=== PATIENT | male | born 1955 | race Caucasian/White ===

== ENCOUNTER → 2016-12-13 | Outpatient (CLI) | payer OTHER ==
--- NOTE | 2016-12-14 06:32 | REP ---
Clinical: Lung screening. History smoking. Comparison: None Technique: Axial low-dose noncontrast images from the thoracic inlet to the upper abdomen using lung screening technique. Findings: The lung torres are well-aerated. There is a 10 mm soft tissue nodule in the right upper lobe (image 28) along with a 4 mm soft tissue nodule at the base of the right middle lobe (image 69). No consolidation, pleural effusion/reaction or pneumothorax. Tracheobronchial tree is patent. Mediastinum is grossly unremarkable. Impression: Lung-RADS category IV-A. Recommended management includes 3-month low-dose CT follow-up and/or PET-CT for the 10 mm nodule. Signed by Waqas Bourgeois MD 12/14/2016 06:24 A
== END ==
LOC: M RAD 12:47
PROVIDERS: ATTEND Internal Medicine
DX: Z87.891 Personal history of nicotine dependence (principal)

== ENCOUNTER → 2017-07-11 | Outpatient (CLI) | payer OTHER | LOC: M RAD 08:59 | DX: R91.1 Solitary pulmonary nodule (principal) ==

== ENCOUNTER 2018-04-26 10:57 | Emergency (ER) | payer OTHER ==
[~2018-04-26] VITALS: Ht 175.3 cm; Wt 88.6 kg
[2018-04-26] MEDS ORDERED: CARV25TA (11:14)
[2018-04-26] MEDS ORDERED: VANI1CRE5 (11:14)
[2018-04-26] MEDS ORDERED: SIMV20TA2 (11:14)
--- NOTE | 2018-04-26 11:38 | REP ---
Chest one-view HISTORY: Cough Comparison: 07/05/2012 The lungs are clear. The heart is normal in size. The pulmonary vasculature is normal in appearance. Impression: No acute disease. Electronically Signed by Angelito Marrero MD 04/26/2018 11:29 A
[2018-04-26 11:52] LABS: BASO % 0.2 % (0.0-1.0); EOS % 0.2 % (0.0-3.0); HEMATOCRIT 39.5 % (42.0-52.0); HEMOGLOBIN 13.1 g/dl (13.5-17.5); LYMPH # 0.6 10^3/uL (1.5-4.5); LYMPH % 9.7 % (24.0-44.0); MEAN CORPUSCULAR HGB CONC 33.2 g/dl (32.0-36.5); MEAN CORPUSCULAR VOLUME 93.4 fl (80.0-96.0); MONO # 0.5 10^3/uL (0.0-0.8); MONO % 7.3 % (0.0-5.0); NEUTROPHILS # 5.3 10^3/uL (1.8-7.7); NEUTROPHILS % 82.3 % (36.0-66.0); PLATELET COUNT, AUTOMATED 174 10^3/uL (150-450); RED BLOOD COUNT 4.23 10^6/uL (4.30-6.10); WHITE BLOOD COUNT 6.4 10^3/uL (4.0-10.0)
[2018-04-26] MEDS ORDERED: ALBUTEROL SULFATE 2.5 MG/0.5 ML INH NEB SOLN NEB ONE ×2 (12:15→13:30)
[2018-04-26 12:27] LABS: ALBUMIN 3.6 GM/DL (3.2-5.2); ALT/SGPT 32 U/L (12-78); BILIRUBIN,DIRECT 0.2 MG/DL (0.0-0.2); BILIRUBIN,TOTAL 0.8 MG/DL (0.2-1.0); BLOOD UREA NITROGEN 16 MG/DL (7-18); CALCIUM LEVEL 8.3 MG/DL (8.8-10.2); CARBON DIOXIDE LEVEL 27 MEQ/L (21-32); CHLORIDE LEVEL 102 MEQ/L (98-107); CK-MB VALUE MASS < 1.0 NG/ML (<3.6); CPK CREATINE PHOSPHOKINASE 114 U/L (39-308); CREATININE FOR GFR 0.98 MG/DL (0.70-1.30); GLOMERULAR FILTRATION RATE > 60.0 (>49); GLUCOSE, FASTING 116 MG/DL (70-100); MB/CK RELATIVE INDEX 0.88 (< OR =4); NT-PRO BNP 482 PG/ML (<125); POTASSIUM SERUM 4.1 MEQ/L (3.5-5.1); SODIUM LEVEL 136 MEQ/L (136-145); TOTAL PROTEIN 6.5 GM/DL (6.4-8.2); TROPONIN I < 0.02 NG/ML (< 0.10)
[2018-04-26] MEDS ORDERED: COMP1MIS3 XX (14:05)
[2018-04-26] MEDS ORDERED: PRED20TA PO (14:07)
[2018-04-26] MEDS ORDERED: ALBU83IN NEB (14:07)
[2018-04-26] MEDS ORDERED: predniSONE 20 MG TAB PO ONE (14:15)
[2018-04-26 14:19] VITALS: BP 129/72
--- NOTE | 2018-04-26 21:11 | ECGEPIP ---
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
== END 2018-04-26 14:43 | disposition home or self-care (01) ==
LOC: M ED 10:57
DX: R05 Cough (principal); I10 Essential (primary) hypertension; E78.5 Hyperlipidemia, unspecified; Z87.891 Personal history of nicotine dependence

== ENCOUNTER → 2018-07-17 | Outpatient (CLI) | payer OTHER ==
[~2018-07-17] MED LIST: ALBU83IN NEB; CARV25TA; COMP1MIS3 XX; PRED20TA PO; SIMV20TA2; VANI1CRE5
--- NOTE | 2018-07-18 06:02 | REP ---
Clinical: Follow up abnormal findings. Technique: Axial noncontrast images from the thoracic inlet to the upper abdomen with coronal and sagittal re-formations. Comparison: 07/11/2017, 12/13/2016. Findings: 10 mm noncalcified nodule in the right upper lobe (image 29) and 4 mm noncalcified nodule in the basilar right middle lobe (image 71) are stable. Remainder of lung torres are well-aerated and clear. No further consolidation, nodule or mass lesion appreciated. No effusion. No pneumothorax. Tracheobronchial tree is patent. No obvious adenopathy. Mediastinum demonstrates normal thoracic aorta, pulmonary vasculature and heart/pericardium. Osseous structures are intact. Limited upper abdomen demonstrates normal bilateral adrenal glands. Impression: 1. Stable 4 mm and 10 mm noncalcified nodules. 2. No new acute mediastinal or pleuroparenchymal process. Electronically Signed by Waqas Bourgeois MD 07/18/2018 05:54 A
== END ==
LOC: M RAD 15:26
PROVIDERS: ATTEND Internal Medicine Pulmonary Disease
DX: R91.8 Other nonspecific abnormal finding of lung field (principal)

== ENCOUNTER → 2019-08-24 | Outpatient (CLI) | payer MEDICARE, OTHER ==
[~2019-08-24] MED LIST changes: -CARV25TA; +CARV25TA PO; +CHLO125TA PO; +D31000TA PO; +LISI-538 PO; -SIMV20TA2; +SIMV20TA22 PO; +TRIA25CR TOP
--- NOTE | 2019-08-25 08:14 | REP ---
REASON: Followup pulmonary nodule. History of tobacco abuse. COMPARISON: Multiple, the latest 07/17/2018. As per the low-dose screening protocol only lung window images were sent to the read station for interpretation. In the right upper lobe, there is a stable solid 10 mm sized noncalcified nodule. In the right middle lobe, there is a stable 4 mm sized noncalcified nodule. No new abnormal nodules, masses or opacities have developed. Limited evaluation of the imaged upper abdomen and imaged osseous structures show no gross abnormalities. Limited evaluation of the mediastinum and pulmonary erin show no gross abnormalities. IMPRESSION: Stable CT examination of the chest with nodules as described above. Lung RADS category 2. Electronically Signed by Agustin Cooney DO 08/27/2019 10:52 A
== END ==
LOC: M RAD 14:23
PROVIDERS: ATTEND Internal Medicine Pulmonary Disease
DX: Z12.2 Encounter for screening for malignant neoplasm of respiratory organs (principal); Z87.891 Personal history of nicotine dependence

== ENCOUNTER → 2020-08-25 | Outpatient (CLI) | payer MEDICARE, OTHER ==
[~2020-08-25] MED LIST changes: -LISI-538 PO; +LISI20TA33 PO
--- NOTE | 2020-08-25 09:25 | REP ---
INDICATION: OTHER NONSPECIFIC ABNORMAL FINDING OF LUNG FIELD COMPARISON: 08/24/2019, 12/13/2016 TECHNIQUE: Axial noncontrast images from the thoracic inlet to the upper abdomen using low-dose lung screening technique (LDCT). FINDINGS: Stable 10 mm noncalcified nodule in the right upper lobe and 4 mm perifissural density along the right major fissure. No new consolidation, significant nodule, or mass. No effusion. No pneumothorax. Tracheobronchial tree is patent. IMPRESSION: Lung-RADS category 2. Stable lesions. No new acute process. Management recommendations include annual low-dose CT surveillance. <Electronically signed by Waqas Bourgeois > 08/25/20 [id number]
== END ==
LOC: M RAD 08:32
PROVIDERS: ATTEND Internal Medicine Pulmonary Disease
DX: Z12.2 Encounter for screening for malignant neoplasm of respiratory organs (principal); Z87.891 Personal history of nicotine dependence; R91.8 Other nonspecific abnormal finding of lung field

== ENCOUNTER → 2021-09-02 | Outpatient (CLI) | payer MEDICARE, OTHER ==
[~2021-09-02] MED LIST changes: +ALBU2.5V10 NEB; -ALBU83IN NEB
== END ==
LOC: M RAD 13:14
PROVIDERS: ATTEND Internal Medicine Pulmonary Disease
DX: Z87.891 Personal history of nicotine dependence (principal)

== ENCOUNTER → 2023-12-05 | Outpatient (CLI) | payer OTHER ==
[~2023-12-05] MED LIST changes: +CARV12.5 PO; +THERTAB52 PO; +VITA100093 PO
== END ==
LOC: M RAD 15:16
PROVIDERS: ATTEND Internal Medicine Pulmonary Disease
DX: F17.200 Nicotine dependence, unspecified, uncomplicated (principal); Z87.891 Personal history of nicotine dependence

== ENCOUNTER → 2024-07-30 | Outpatient (CLI) | payer MEDICARE, OTHER ==
[~2024-07-30] MED LIST changes: -TRIA25CR TOP; +TRIA80CR15 TOP
== END ==
LOC: M PLAIMG 08:34
PROVIDERS: ATTEND Internal Medicine Cardiovascular Disease
DX: I77.810 Thoracic aortic ectasia (principal); I11.9 Hypertensive heart disease without heart failure; I27.20 Pulmonary hypertension, unspecified

== ENCOUNTER → 2024-12-31 | Outpatient (CLI) | payer MEDICARE, OTHER | LOC: M RAD 12:36 | PROVIDERS: ATTEND Physician Assistant | DX: Z12.2 Encounter for screening for malignant neoplasm of respiratory organs (principal); Z87.891 Personal history of nicotine dependence; R91.1 Solitary pulmonary nodule; J84.10 Pulmonary fibrosis, unspecified; I51.7 Cardiomegaly; K76.89 Other specified diseases of liver ==